=== PATIENT | male | born 1945 | race Caucasian/White ===

== ENCOUNTER 2019-04-24 14:33 | Outpatient (CLI) | payer MEDICARE ==
--- NOTE | 2019-04-24 17:17 | ULT ---
RIGHT LOWER EXTREMITY VENOUS ULTRASOUND 04/24/19 HISTORY: Right lower extremity pain. TECHNIQUE: Multiplanar jones scale and color Doppler images were obtained in a right lower extremity venous ultra sound. Spectral analysis of the Doppler waveforms were performed. FINDINGS: The right common femoral vein, profunda femoral vein, superficial femoral vein, and popliteal vein ar e normal in appearance without visible thrombus. These vessels demonstrate normal compression, flow a nd augmentation. The posterior tibial vein and greater saphenous vein are also patent. IMPRESSION: No evidence of DVT. POS: [facility]
== END 2019-04-24 14:34 | disposition home or self-care (01) ==
LOC: ULT 14:33
PROVIDERS: ATTEND Internal Medicine Hematology & Oncology
DX: R60.0 Localized edema (principal); M79.604 Pain in right leg

== ENCOUNTER 2019-07-08 09:28 | Outpatient (CLI) | payer MEDICARE ==
--- NOTE | 2019-07-08 15:39 | CT ---
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 Restaging. COMPARISON: Images from prior exams, including 03/25/2019, available for comparison. Reports are not a vailable. FINDINGS: Mild pulmonary hyperinflation and linear scarring at the lung bases. Oral contrast was admi nistered. No evidence of bowel obstruction. Lack of IV contrast limits evaluation of the soft tissues. A subtle somewhat ill-defined hypodense ma ss in the right liver lobe, centered in the posterior segment, is faintly seen, better when viewed with a narrow range window image. The hypodense area surrounding the mass now measures up to 10.6 cm x 9.0 cm greatest diameters on the axial images. At a similar location on the prior study, the area of hyperenhancement surrounding mass is in a similar size and distribution. Displacement of the vesse ls by the central necrotic portion of the mass is not evaluated given lack of IV contrast. Right kidney is surgically absent. Prominent calcification throughout the arterial structures. Degene rative changes lumbar spine. Pelvis was not imaged. IMPRESSION: While prior exams are present, the lack of contrast on today's study makes accurate chichi rison very limited. Based on the overall edema associated with the large right liver lobe mass on the current study compared to the abnormal enhancement on the previous exam, there has been no signif icant change in area of involvement of the liver. No new abnormalities are seen on the noncontrast CT abdomen. Status post right nephrectomy. Atherosclerosis.
== END 2019-07-08 09:29 | disposition home or self-care (01) ==
LOC: BICCT 09:28
PROVIDERS: ATTEND Internal Medicine Hematology & Oncology
DX: C78.7 Secondary malignant neoplasm of liver and intrahepatic bile duct (principal); C64.9 Malignant neoplasm of unspecified kidney, except renal pelvis; R60.0 Localized edema; R16.0 Hepatomegaly, not elsewhere classified; I70.90 Unspecified atherosclerosis; Z90.5 Acquired absence of kidney
CPT/HCPCS: 74150